=== PATIENT | male | born 1950 | race Caucasian/White ===

== ENCOUNTER → 2018-03-01 | Outpatient (CLI) | payer BC ==
[~2018-03-01] MED LIST: BACTRIM DS 8001 TAB PO; BP MED PO; FLAGYL500 MG PO; ULTRAM 50MG TAB50 MG PO; ZIAC 2.5/6.25MG1 TAB PO
== END ==
LOC: COL.RAD 08:22
DX: R10.13 Epigastric pain (principal)
CPT/HCPCS: Q9967

== ENCOUNTER → 2018-04-05 | Outpatient (CLI) | payer BC | LOC: COL.RAD 07:30 | DX: N20.0 Calculus of kidney (principal); K52.9 Noninfective gastroenteritis and colitis, unspecified ==

== ENCOUNTER → 2018-04-19 | Outpatient (CLI) | payer BC | LOC: COL.RAD 07:49 | DX: K52.9 Noninfective gastroenteritis and colitis, unspecified (principal) | CPT/HCPCS: A9541 ==